=== PATIENT | female | born 2000 | race Hispanic/Latino ===

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

== ENCOUNTER 2022-08-03 08:30 | Outpatient (CLI) | payer OTHER ==
[2022-08-03 11:54] LABS: BHCG - Serum Negative (NEGATIVE); Pregs Control Background? CLEAR/WHITE (CLR/WHITE); Pregs Control Bar Appear? YES (CONTROL BAR)
== END 2022-08-03 08:31 | disposition home or self-care (01) ==
LOC: LABBT 08:30
PROVIDERS: ATTEND Specialist
DX: Z01.812 Encounter for preprocedural laboratory examination (principal); J35.01 Chronic tonsillitis
CPT/HCPCS: 84703; 85014

== ENCOUNTER 2022-08-04 06:06 | Day surgery (SDC) | payer OTHER ==
[2022-08-02 10:09] VITALS: BMI 32.1
[2022-08-04] MEDS ORDERED: Ferric Subsulfate (ASTRINGYN) 8 GM VIAL ONE (06:56)
[2022-08-04] MEDS ORDERED: fentaNYL PF 100 MCG/2 ML SYRINGE ONE ×2 (09:34→11:33)
[2022-08-04] MEDS ORDERED: Ketamine 50 MG/ML (10ML VIAL) ONE (09:34)
[2022-08-04] MEDS ORDERED: Dexamethasone 20 MG/5 ML VIAL ONE (10:14)
[2022-08-04] MEDS ORDERED: Ondansetron PF 4 MG/2 ML Vial ONE (10:14)
[2022-08-04] MEDS ORDERED: PROPOFOL 200 MG/20 ML VIAL ONE (10:14)
[2022-08-04] MEDS ORDERED: Morphine 2 MG/ML VIAL ONE (12:03)
[2022-08-04] MEDS ORDERED: Hydrocodone-Acetamin 15 ML UDCUP ONE (12:29)
== END 2022-08-04 13:05 | disposition home or self-care (01) ==
LOC: SDC 06:06
PROVIDERS: ATTEND Specialist
PROC: 0CTPXZZ Resection of Tonsils, External Approach (ICD-10-PCS; principal; 2022-08-04)
DX: J35.01 Chronic tonsillitis (principal); G47.30 Sleep apnea, unspecified
CPT/HCPCS: 88304; J1100; J2272; J2405; J2704